=== PATIENT | female | born 1985 | race Hispanic/Latino ===

== ENCOUNTER 2021-05-15 15:06 | Outpatient (CLI) | payer OTHER ==
[2021-05-16 18:59] LABS: SARS-CoV-2 PCR by NAA Not Detected (NotDetected)
== END 2021-05-15 15:07 | disposition home or self-care (01) ==
LOC: CSHLAB 15:06
PROVIDERS: ATTEND Family Medicine
DX: Z20.822 Contact with and (suspected) exposure to COVID-19 (principal)
CPT/HCPCS: U0003; U0005

== ENCOUNTER 2021-05-16 04:36 | Inpatient (IN) | payer MEDICAID, OTHER, SELFPAY ==
[2021-05-16] MEDS ORDERED: Lidocaine 1% (PF) 30 ML VIAL ONE (04:53)
[2021-05-16] MEDS ORDERED: Penicillin G Potassium 5 MILL.UNITS VIAL ONE (04:54)
[2021-05-16 05:01] VITALS: BMI 27.2
[2021-05-16] MEDS ORDERED: hydrALAZINE 20 MG/ML VIAL SLOW IVP PRN ×2 (05:11→05:25)
[2021-05-16] MEDS ORDERED: Ondansetron PF 4 MG/2 ML Vial IVP PRN ×2 (05:11→05:25)
[2021-05-16] MEDS ORDERED: Lactated Ringer's 1,000 ML IV SCH (05:15)
[2021-05-16] MEDS ORDERED: Lanolin Ointment 7 GM TUBE TOP PRN (05:25)
[2021-05-16] MEDS: NS w/ Oxytocin 30 units 500 ML ONE ×2 (05:25→06:07)
[2021-05-16] MEDS ORDERED: Boostrix 0.5 ML (Tdap) VIAL IM ONE (05:25)
[2021-05-16] MEDS ORDERED: Milk Of Magnesia 30 ML UDCUP PO PRN (05:25)
[2021-05-16] MEDS ORDERED: Promethazine HCl 25 MG/ML VIAL IM PRN (05:25)
[2021-05-16] MEDS ORDERED: HYDROcodone/Acetaminophen 5/325 mg Tablet PO PRN (05:25)
[2021-05-16 05:31] LABS: Mean Corpuscular Volume 84.7 fl (81.6-98.3); Mean Platelet Volume 13.5 fl (7.4-10.4); RBC Distribution Width 14.2 % (11.5-14.5); Red Blood Cell (RBC) Count 4.65 10x6/uL (3.90-5.03); White Blood Cell (WBC) Count 16.3 10x3/uL (3.5-10.5)
[2021-05-16 05:32] LABS: Platelet Count 229 10x3/uL (150-450)
[2021-05-16 05:56] LABS: Hep B Surf Ag Non-Reactive S/CO (NonReactive); Syphilis Antibody Nonreactive (Nonreactive); Syphilis Antibody Index 0.09 S/CO (<1.00 Non-Reactive)
[2021-05-16 05:58] LABS: HBSAg Index 0.17 S/CO (0-0.99)
[2021-05-16] MEDS ORDERED: NS w/ Oxytocin 30 units 500 ML ONE (06:09)
[2021-05-16] MEDS: Ibuprofen 800 MG TAB PO SCH ×3 (09:32→21:54)
[2021-05-16] MEDS: Prenatal Vitamin 1 TAB PO SCH (09:32)
[2021-05-16] MEDS: Docusate 100 MG CAP PO SCH ×2 (11:10→21:54)
[2021-05-16] MEDS: Ferrous Sulfate 325 MG TAB PO SCH ×2 (11:10→17:19)
[2021-05-16 11:39] LABS: SARS-CoV-2 NAA Rapid Test Not Detected (NotDetected)
[2021-05-17] MEDS: Ibuprofen 800 MG TAB PO SCH ×3 (06:08→21:58)
[2021-05-17] MEDS: Ferrous Sulfate 325 MG TAB PO SCH (07:43)
[2021-05-17] MEDS: Prenatal Vitamin 1 TAB PO SCH (09:51)
[2021-05-17] MEDS: Docusate 100 MG CAP PO SCH ×2 (09:51→21:58)
[2021-05-18] MEDS: Ibuprofen 800 MG TAB PO SCH (05:58)
[2021-05-18] MEDS: Ferrous Sulfate 325 MG TAB PO SCH (07:30)
[2021-05-18 07:53] VITALS: BP 104/52; TEMP 98.4
[2021-05-18] MEDS: Prenatal Vitamin 1 TAB PO SCH (07:54)
[2021-05-18] MEDS: Docusate 100 MG CAP PO SCH (07:54)
== END 2021-05-18 10:17 | disposition home or self-care (01) | DRG 807 ==
LOC: CSHLD/OP 04:36 → CSHLD 04:48 → CSHPED 10:22
PROVIDERS: ADMIT Family Medicine; ATTEND Family Medicine
PROC: 10E0XZZ Delivery of Products of Conception, External Approach (ICD-10-PCS; principal; 2021-05-16)
DX: O99.834 Other infection carrier state complicating childbirth (principal); Z37.0 Single live birth; Z3A.38 38 weeks gestation of pregnancy; Z20.822 Contact with and (suspected) exposure to COVID-19
CPT/HCPCS: 85027; 86780; 86850; 86900; 86901; 87340; 88307; 90715; 99285; J2001; J2540; J2590; U0002